=== PATIENT | female | born 1990 | race Caucasian/White ===

== ENCOUNTER 2021-04-27 13:57 | Emergency (ER) | payer BC ==
[~2021-04-27] VITALS: Ht 165.1 cm; Wt 56.7 kg
[2021-04-27 14:02] VITALS: BP 127/81
[2021-04-27] MEDS ORDERED: METH4TAB3 PO (14:47)
[2021-04-27] MEDS ORDERED: HYDR50TA61 PO (14:49)
[2021-04-27] MEDS ORDERED: FAMO-131 PO (14:49)
--- NOTE | 2021-04-27 15:03 | NUR ---
Patient discharged to home in stable condition. Written and verbal after care instructions given. Patient verbalizes understanding of instruction.
== END 2021-04-27 15:02 | disposition home or self-care (01) ==
LOC: ER 14:01
DX: L50.9 Urticaria, unspecified (principal); Z79.899 Other long term (current) drug therapy